=== PATIENT | male | born 1980 | race Caucasian/White ===

== ENCOUNTER 2018-02-28 14:07 | Day surgery (SDC) | payer OTHER ==
[2018-02-28] VITALS (7 sets, daily range): BP systolic 127–157; BP diastolic 80–99; PULSE 70–81; TEMP 97.9–98.2
[~2018-02-28] VITALS: Ht 172.7 cm; Wt 100.0 kg
[2018-02-28] MEDS ORDERED: MOTRIN 800800 MG/TAB PO (15:24)
[2018-02-28] MEDS ORDERED: CENTRUM MEN'S PO (15:25)
[2018-02-28] MEDS ORDERED: TOPROL XL100 MG PO (15:25)
[2018-02-28] MEDS ORDERED: NORCO 325 MG-51 TAB PO (15:25)
[2018-02-28] MEDS ORDERED: NORVASC 10MG10 MG PO (15:26)
[2018-02-28] MEDS ORDERED: NORVASC 5MG5 MG/TAB PO (15:26)
== END 2018-02-28 19:00 | disposition home or self-care (01) ==
LOC: SDCO 14:07 → MEDICAL 16:36 → SDCO 17:00
DX: N20.1 Calculus of ureter (principal); I10 Essential (primary) hypertension; I47.1 Supraventricular tachycardia; F17.210 Nicotine dependence, cigarettes, uncomplicated; G47.33 Obstructive sleep apnea (adult) (pediatric); Z98.52 Vasectomy status; Z88.2 Allergy status to sulfonamides; Z80.8 Family history of malignant neoplasm of other organs or systems; Z83.3 Family history of diabetes mellitus; Z82.49 Family history of ischemic heart disease and other diseases of the circulatory system
CPT/HCPCS: OP; C1769; J0690; J1100; J1885; J2405; J3010; J7120; Q9967